=== PATIENT | male | born 1975 | race Caucasian/White ===

== ENCOUNTER 2024-02-18 13:05 | Inpatient (IN) | payer OTHER ==
[2024-02-18 14:13] VITALS: BMI 27.1
[2024-02-18] MEDS ORDERED: IBUPROFEN 400 MG TABLET (FP) PO PRN (18:32)
[2024-02-18] MEDS ORDERED: BISMUTH SUBSALICYLATE 524 MG/30 ML PO PRN (18:32)
[2024-02-18] MEDS ORDERED: P-EPHED 60MG/TRIPROLIDI 2.5MG TABLET PO PRN (18:32)
[2024-02-18] MEDS ORDERED: NICOTINE POLACRILEX 2 MG GUM BUC PRN (18:32)
[2024-02-18] MEDS ORDERED: BENZONATATE 200 MG CAPSULE PO PRN (18:32)
[2024-02-18] MEDS ORDERED: BENZOCAINE/MENTHOL (CHLORASEPTIC ) LOZENGE MM PRN (18:32)
[2024-02-18] MEDS ORDERED: NALOXONE (NARCAN) HCL 4 MG/0.1 ML SPRAY NS PRN (18:32)
[2024-02-18] MEDS ORDERED: NICOTINE POLACRILEX 2 MG LOZENGE BC PRN (18:32)
[2024-02-18] MEDS ORDERED: MAG HYDROX/AL HYDROX/SIMETH 30 ML UNIT-DOSE CUP PO PRN (18:32)
[2024-02-18] MEDS ORDERED: METHOCARBAMOL 500 MG TABLET PO PRN (18:32)
[2024-02-18] MEDS ORDERED: DICYCLOMINE HCL 10 MG CAPSULE PO PRN (18:32)
[2024-02-18] MEDS ORDERED: ACETAMINOPHEN 325 MG TABLET (FP) PO PRN (18:32)
[2024-02-18] MEDS ORDERED: hydrOXYzine PAMOATE 25 MG CAPSULE (FP) PO PRN (18:32)
[2024-02-18] MEDS ORDERED: LOPERAMIDE HCL 2 MG CAPSULE PO PRN (18:32)
[2024-02-18] MEDS ORDERED: ONDANSETRON *ODT* 4 MG TABLET SL PRN (18:32)
[2024-02-18] MEDS ORDERED: guaiFENesin 600 MG TABLET.ER (FP) PO PRN (18:32)
[2024-02-18] MEDS ORDERED: POLYETHYLENE GLYCOL (HEALTHYLAX) 3350 17 GM PACKET PO PRN (18:32)
[2024-02-18] MEDS ORDERED: MAGNESIUM HYDROX 2400MG/30ML ORAL SUSPENSION 30 ML CUP PO PRN (18:32)
[2024-02-18] MEDS ORDERED: HYDROCORTISONE 0.5% TOPICAL CREAM 30 GM TUBE TP PRN (20:02)
[2024-02-18] MEDS: THIAMINE 100 MG TABLET PO SCH (22:00)
[2024-02-18] MEDS: BACITRACIN 0.9 GM PACKET TP SCH (22:00)
[2024-02-18] MEDS: MELATONIN 5 MG TABLETS PO SCH (22:00)
[2024-02-19] MEDS: PRENATAL VITAMINS W/ FOLIC ACID TABLET (FP) PO SCH (09:40)
[2024-02-19] MEDS ORDERED: methaDONE HCL 10 MG TABLET PO ONE (09:50)
[2024-02-19] MEDS ORDERED: diazePAM 5 MG TABLET PO PRN (09:52)
[2024-02-19] MEDS: diazePAM 5 MG TABLET PO SCH (10:15)
[2024-02-19 11:21] LABS: HEMATOCRIT 32.9 % (35.4-49); HEMOGLOBIN 11.3 GM/dL (11.7-16.9); MCH 27.5 pg (25.7-33.7); MCHC 34.3 g/dl (32.0-35.9); MEAN CELL VOLUME 80.1 fl (80-96); MEAN PLT VOLUME 7.9 fl (7.5-11.1); PLATELET COUNT 215 10^3/uL (134-434); RBC 4.11 M/mm3 (4.00-5.60); RDW 16.3 % (11.9-15.9); WHITE BLOOD COUNT 4.2 K/mm3 (4.0-10.0)
[2024-02-19 13:09] LABS: CHLORIDE 104 mmol/L (98-107); POTASSIUM 3.7 mmol/L (3.5-5.1); SODIUM 138 mmol/L (136-145)
[2024-02-19 13:14] LABS: ALBUMIN 3.1 g/dl (3.4-5.0); ANION GAP 4 mmol/L (4-13); CO2 29 mmol/L (21-32)
[2024-02-19 13:15] LABS: GLUCOSE,RANDOM 134 mg/dL (74-106)
[2024-02-19 13:17] LABS: SGOT/AST 45 U/L (15-37); SGPT/ALT 25 U/L (13-61)
[2024-02-19 13:18] LABS: CREATININE 0.7 mg/dL (0.55-1.3)
[2024-02-19 13:19] LABS: BILIRUBIN,TOTAL 0.3 mg/dL (0.2-1); TOT PROT 8.2 g/dl (6.4-8.2)
[2024-02-19 13:20] LABS: ALK PHOS 77 U/L (45-117)
[2024-02-19] MEDS: CLINDAMYCIN HCL 150 MG CAPSULE (FP) PO SCH (17:44)
[2024-02-20] MEDS ORDERED: methaDONE HCL 10 MG TABLET PO SCH (06:00)
[2024-02-20] MEDS: diazePAM 5 MG TABLET PO SCH (06:09)
[2024-02-20] MEDS: IBUPROFEN 600 MG TABLET (FP) PO PRN (17:23)
[2024-02-21] MEDS: diazePAM 5 MG TABLET PO SCH (05:34)
[2024-02-21 06:28] VITALS: RESP 16
[2024-02-21 09:31] VITALS: BP 109/60; PULSE 75; TEMP 98
[2024-02-21] MEDS: NALOXONE (NYS OPIOID OVERDOSE PROGRAM) 4 MG/0.1 ML SPRAY NS PRN (09:42)
[2024-02-22] MEDS ORDERED: diazePAM 5 MG TABLET PO ONE (06:00)
== END 2024-02-21 10:18 | disposition home or self-care (01) | DRG 773 ==
LOC: YASAS 13:05 → Y6N 18:36
PROVIDERS: ADMIT Allergy & Immunology; ATTEND Surgery
PROC: HZ2ZZZZ Detoxification Services for Substance Abuse Treatment (ICD-10-PCS; principal; 2024-02-18)
DX: F10.230 Alcohol dependence with withdrawal, uncomplicated (principal); F11.20 Opioid dependence, uncomplicated; F14.20 Cocaine dependence, uncomplicated; F17.210 Nicotine dependence, cigarettes, uncomplicated; F19.282 Other psychoactive substance dependence with psychoactive substance-induced sleep disorder; F31.9 Bipolar disorder, unspecified; Z62.810 Personal history of physical and sexual abuse in childhood; Z63.8 Other specified problems related to primary support group
CPT/HCPCS: 36415; 80053; 80305; 80307; 85027; 86780; 93005; 93010